=== PATIENT | female | born 1980 | race African-American/Black ===

== ENCOUNTER 2019-07-25 11:13 | Emergency (ER) | payer SELFPAY ==
[~2019-07-25] VITALS: Ht 154.9 cm; Wt 62.7 kg
[2019-07-25 11:22] VITALS: Ht 154.9 cm; Wt 62.7 kg
[2019-07-25] MEDS ORDERED: KEFLEX500 MG PO (13:48)
[2019-07-25] MEDS ORDERED: TORADOL10 MG PO (13:48)
[2019-07-25 14:11] VITALS: BP 108/64
== END 2019-07-25 14:16 | disposition home or self-care (01) ==
LOC: D.ER 11:13
DX: K08.89 Other specified disorders of teeth and supporting structures (principal); K05.30 Chronic periodontitis, unspecified; Z72.0 Tobacco use